=== PATIENT | male | born 1935 | race Caucasian/White ===

== ENCOUNTER 2019-07-12 19:52 | Inpatient (IN) | payer MEDICARE ==
[2019-07-12] MEDS ORDERED: SODIUM CHLORIDE 0.9% 1,000 ML IV STA (20:07)
[2019-07-12 20:32] LABS: Basophils % (A) 0 %; Eosinophils % (A) 0 %; HCT 36.5 % (39.0-53.0); HGB 12.5 gm/dL (13.0-17.5); Lymphocytes # (A) 0.2 k/uL (1.0-4.8); Lymphocytes % (A) 2 %; MCH 32.9 pg (25.0-35.0); MCHC 34.2 g/dL (31.0-37.0); Mean Platelet Volume 7.9; Monocytes # (A) 0.5 k/uL (0-1.0); Monocytes % (A) 4 %; Neutrophils # (A) 9.8 k/uL (1.3-7.7); Neutrophils % (A) 93 %; Platelet Count 154 k/uL (150-450); RDW 14.1 % (11.5-15.5); WBC 10.5 k/uL (3.8-10.6)
[2019-07-12 20:39] LABS: Magnesium 1.8 mg/dL (1.6-2.3); Potassium 4.2 mmol/L (3.5-5.1); Total Bilirubin 0.9 mg/dL (0.2-1.3); Total Protein 6.7 g/dL (6.3-8.2)
[2019-07-12 20:54] LABS: Partial Thromboplastin Time 22.6 sec (22.0-30.0); Prothrombin Time 10.5 sec (9.0-12.0)
--- NOTE | 2019-07-12 21:03 | CT ---
EXAMINATION TYPE: CT brain wo con DATE OF EXAM: 07/12/2019 COMPARISON: None HISTORY: weakness, falls CT DLP: 1074.4 mGycm Automated exposure control for dose reduction was used. FINDINGS: There is cerebral cortical atrophy. There is no mass effect nor midline shift. There is no sign of in tracranial hemorrhage. There is no hydrocephalus. Calvarium is intact. There is mild mucosal thickeni ng in the ethmoid air cells. IMPRESSION: CEREBRAL ATROPHY. NO ACUTE INTRACRANIAL ABNORMALITY.
--- NOTE | 2019-07-12 21:04 | XR ---
EXAMINATION TYPE: XR chest 2V DATE OF EXAM: 07/12/2019 COMPARISON: March 21, 2015 HISTORY: Syncope TECHNIQUE: Frontal and lateral views of the chest are obtained. FINDINGS: There is no heart failure nor confluent pneumonic infiltrate. Heart size is normal. There are chest leads. Thoracic aorta is atheromatous. IMPRESSION: No active cardiopulmonary disease. Normal heart. Atheromatous aorta. No change.
[2019-07-12] MEDS ORDERED: ALBUTEROL NEBULIZED 2.5 MG/3 ML INHALATION PRN ×2 (22:37)
[2019-07-12] MEDS ORDERED: NALOXONE 0.4 MG/ML 1 ML VIAL IV PRN (22:43)
[2019-07-12] MEDS ORDERED: Acetaminophen-Codeine 300-30mg TAB PO PRN (22:43)
[2019-07-12] MEDS ORDERED: ALPRAZolam 0.25 MG TAB PO PRN (22:43)
--- NOTE | 2019-07-12 22:43 | ED ---
Weakness HPI - General Chief complaint: Weakness Stated complaint: Fall Time Seen by Provider: 07/12/19 20:02 Source: patient, EMS Mode of arrival: EMS Limitations: no limitations - History of Present Illness Initial comments: Patient presents with chest pain, weakness. His pain is substernal. Nothing makes his symptoms better or worse. He has no nausea or vomiting. He is a little short of breath. He has no lightheadedness. He has no focal weakness. He has no back pain. He was not doing anything when he began to feel this way. He took no medicine for the symptoms. He has no headache. - Related Data Home Medications Medication Instructions Recorded Confirmed Albuterol Sulfate [Proventil Hfa] 2 puff INHALATION RT-QID PRN 03/21/15 07/12/19 Budesonide/Formoterol Fumarate 2 puff INHALATION RT-BID 03/21/15 07/12/19 [Symbicort 160-4.5 Mcg Inhaler] Cetirizine HCl [Zyrtec] 10 mg PO DAILY 03/21/15 07/12/19 Furosemide [Lasix] 40 mg PO DAILY 03/21/15 07/12/19 Metoprolol Tartrate 25 mg PO BID 03/21/15 07/12/19 Omeprazole [PriLOSEC] 20 mg PO AC-BRKFST 03/21/15 07/12/19 Potassium Chloride [Klor-Con 10] 10 meq PO DAILY 03/21/15 07/12/19 Tiotropium [place] [Spiriva] 1 cap INHALATION RT-DAILY 03/21/15 07/12/19 guaiFENesin [Mucinex] 1,200 mg PO BID PRN 03/21/15 07/12/19 Albuterol Nebulized [Ventolin 2.5 mg INHALATION RT-TID PRN 07/12/19 07/12/19 Nebulized] Aspirin EC [Ecotrin Low Dose] 81 mg PO DAILY 07/12/19 07/12/19 Atorvastatin [Lipitor] 10 mg PO HS 07/12/19 07/12/19 Lisinopril [Zestril] 2.5 mg PO DAILY 07/12/19 07/12/19 glipiZIDE XL [Glucotrol Xl] 2.5 mg PO DAILY 07/12/19 07/12/19 Allergies Allergy/AdvReac Type Severity Reaction Status Date / Time No Known Allergies Allergy Verified 07/12/19 20:39 Review of Systems ROS Statement: Those systems with pertinent positive or pertinent negative responses have been documented in the HPI. ROS Other: All systems not noted in ROS Statement are negative. Past Medical History Past Medical History: COPD, Diabetes Mellitus History of Any Multi-Drug Resistant Organisms: None Reported Past Surgical History: Hernia Repair Past Psychological History: No Psychological Hx Reported Smoking Status: Former smoker Past Alcohol Use History: None Reported Past Drug Use History: None Reported General Exam Limitations: no limitations General appearance: alert, in no apparent distress Head exam: Present: atraumatic, normocephalic, normal inspection Eye exam: Present: normal appearance, PERRL, EOMI. Absent: scleral icterus, conjunctival injection, periorbital swelling ENT exam: Present: normal exam, mucous membranes moist Neck exam: Present: normal inspection. Absent: tenderness, meningismus, lymphadenopathy Respiratory exam: Present: normal lung sounds bilaterally. Absent: respiratory distress, wheezes, rales, rhonchi, stridor Cardiovascular Exam: Present: regular rate, normal rhythm, normal heart sounds. Absent: systolic murmur, diastolic murmur, rubs, gallop, clicks GI/Abdominal exam: Present: soft, normal bowel sounds. Absent: distended, tenderness, guarding, rebound, rigid Extremities exam: Present: normal inspection, full ROM, normal capillary refill. Absent: tenderness, pedal edema, joint swelling, calf tenderness Back exam: Present: normal inspection Neurological exam: Present: alert, oriented X3, CN II-XII intact Psychiatric exam: Present: normal affect, normal mood Skin exam: Present: warm, dry, intact, normal color. Absent: rash Course Vital Signs 07/12/19 07/12/19 07/12/19 19:54 20:00 20:30 Temperature 101.4 F H Pulse Rate 123 H 121 H 122 H Respiratory 20 13 23 Rate Blood Pressure 106/70 103/77 106/70 O2 Sat by Pulse 94 L 93 L 95 Oximetry 07/12/19 07/12/19 07/12/19 21:00 21:30 21:50 Temperature 98.3 F Pulse Rate 118 H 114 H Respiratory 20 26 H Rate Blood Pressure 101/65 118/79 O2 Sat by Pulse 97 94 L Oximetry EKG Findings - EKG Comments: EKG Findings:: Twelve-lead EKG shows ventricular rate 119 bpm, normal PA interval, Roberto complexes and no ST elevation or depression, interpreted by me as sinus tachycardia. Medical Decision Making - Medical Decision Making Patient has shortness of breath. He has chest pain. His weakness. He will be admitted to the hospital. - Lab Data Result diagrams: 07/12/19 20:25 07/12/19 20:25 Lab Results 07/12/19 07/12/19 07/12/19 Range/Units 20:25 20:25 20:25 WBC 10.5 (3.8-10.6) k/uL RBC 3.80 L (4.30-5.90) m/uL Hgb 12.5 L (13.0-17.5) gm/dL Hct 36.5 L (39.0-53.0) % MCV 96.0 (80.0-100.0) fL MCH 32.9 (25.0-35.0) pg MCHC 34.2 (31.0-37.0) g/dL RDW 14.1 (11.5-15.5) % Plt Count 154 (150-450) k/uL Neutrophils % 93 % Lymphocytes % 2 % Monocytes % 4 % Eosinophils % 0 % Basophils % 0 % Neutrophils # 9.8 H (1.3-7.7) k/uL Lymphocytes # 0.2 L (1.0-4.8) k/uL Monocytes # 0.5 (0-1.0) k/uL Eosinophils # 0.0 (0-0.7) k/uL Basophils # 0.0 (0-0.2) k/uL PT 10.5 (9.0-12.0) sec INR 1.0 (<1.2) APTT 22.6 (22.0-30.0) sec Sodium 136 L (137-145) mmol/L Potassium 4.2 (3.5-5.1) mmol/L Chloride 103 (98-107) mmol/L Carbon Dioxide 22 (22-30) mmol/L Anion Gap 11 mmol/L BUN 22 H (9-20) mg/dL Creatinine 1.37 H (0.66-1.25) mg/dL Est GFR (CKD-EPI)AfAm 55 (>60 ml/min/1.73 sqM) Est GFR (CKD-EPI)NonAf 47 (>60 ml/min/1.73 sqM) Glucose 135 H (74-99) mg/dL Calcium 9.0 (8.4-10.2) mg/dL Magnesium 1.8 (1.6-2.3) mg/dL Total Bilirubin 0.9 (0.2-1.3) mg/dL AST 25 (17-59) U/L ALT 22 (21-72) U/L Alkaline Phosphatase 81 (38-126) U/L Troponin I (0.000-0.034) ng/mL Total Protein 6.7 (6.3-8.2) g/dL Albumin 4.0 (3.5-5.0) g/dL 07/12/19 Range/Units 20:25 WBC (3.8-10.6) k/uL RBC (4.30-5.90) m/uL Hgb (13.0-17.5) gm/dL Hct (39.0-53.0) % MCV (80.0-100.0) fL MCH (25.0-35.0) pg MCHC (31.0-37.0) g/dL RDW (11.5-15.5) % Plt Count (150-450) k/uL Neutrophils % % Lymphocytes % % Monocytes % % Eosinophils % % Basophils % % Neutrophils # (1.3-7.7) k/uL Lymphocytes # (1.0-4.8) k/uL Monocytes # (0-1.0) k/uL Eosinophils # (0-0.7) k/uL Basophils # (0-0.2) k/uL PT (9.0-12.0) sec INR (<1.2) APTT (22.0-30.0) sec Sodium (137-145) mmol/L Potassium (3.5-5.1) mmol/L Chloride (98-107) mmol/L Carbon Dioxide (22-30) mmol/L Anion Gap mmol/L BUN (9-20) mg/dL Creatinine (0.66-1.25) mg/dL Est GFR (CKD-EPI)AfAm (>60 ml/min/1.73 sqM) Est GFR (CKD-EPI)NonAf (>60 ml/min/1.73 sqM) Glucose (74-99) mg/dL Calcium (8.4-10.2) mg/dL Magnesium (1.6-2.3) mg/dL Total Bilirubin (0.2-1.3) mg/dL AST (17-59) U/L ALT (21-72) U/L Alkaline Phosphatase (38-126) U/L Troponin I <0.012 (0.000-0.034) ng/mL Total Protein (6.3-8.2) g/dL Albumin (3.5-5.0) g/dL Disposition Clinical Impression: Chest pain Disposition: ADMITTED IP TO THIS HOSP Condition: Fair Referrals: Pavan Fiore MD [Primary Care Provider] - 1-2 days
[2019-07-12 22:47] LABS: Appearance,Urine Clear (Clear); Bilirubin,Urine Negative (Negative); Blood,Urine Trace (Negative); Color,Urine Yellow; Glucose,Urine (UA) Negative (Negative); Ketones,Urine Negative (Negative); Leukocyte Esterase,Urine Negative (Negative); Mucus,Urine Rare /hpf; Nitrite,Urine Negative (Negative); Protein,Urine Negative (Negative); RBC,Urine 2 /hpf (0-5); Specific Gravity,Urine 1.019 (1.001-1.035); Urobilinogen,Urine <2.0 mg/dL (<2.0); WBC,Urine 1 /hpf (0-5)
[2019-07-12 23:59] VITALS: RESP 18
[2019-07-13] MEDS ORDERED: MORPHINE SULFATE 4 MG/ML SYRINGE IV PRN
[2019-07-13] MEDS: ENOXAPARIN 150 MG/ML SYRINGE SQ SCH ×2 (02:55→09:26)
[2019-07-13] MEDS ORDERED: MAG HYDROX/AL HYDROX/SIMETH 30 ML CUP PO PRN (06:00)
[2019-07-13] MEDS ORDERED: ONDANSETRON 4 MG/2 ML VIAL IVP PRN (08:00)
[2019-07-13] MEDS: IPRATROPIUM 0.5 MG/2.5 ML NEBU INHALATION SCH ×2 (08:34→10:03)
[2019-07-13] MEDS ORDERED: DOCUSATE 100 MG CAP PO PRN (09:00)
[2019-07-13] MEDS ORDERED: ASPIRIN 81 MG PO SCH (09:00)
[2019-07-13 09:07] LABS: Glucose,Whole Blood 111 mg/dL (75-99)
--- NOTE | 2019-07-13 09:18 | NM ---
EXAMINATION TYPE: NM pul vent and perfuse DATE OF EXAM: 07/13/2019 COMPARISON: Chest x-ray 06/02/2019 HISTORY: Positive d-dimer TECHNIQUE: Utilizing inhalation of 69.6 mCi Tc 99m DTPA aerosol and intravenous injection of 4.99 mC i of Tc 99m MAA, ventilation and perfusion images are acquired post injection in multiple projections . FINDINGS: No moderate or large mismatched defects are evident. No triple matched defect is evident. There is so me patchy distribution which can be related to mild COPD. IMPRESSION: Low probability for acute pulmonary embolism
[2019-07-13] MEDS: LORATADINE 10 MG TAB PO SCH (09:26)
[2019-07-13] MEDS: POTASSIUM CHLORIDE ER 10 MEQ TAB.ER.PRT PO SCH (09:26)
[2019-07-13] MEDS: LISINOPRIL 2.5 MG TAB PO SCH (09:26)
[2019-07-13] MEDS: FUROSEMIDE 40 MG TAB PO SCH (09:26)
[2019-07-13] MEDS: METOPROLOL TARTRATE 25 MG TAB PO SCH ×2 (09:26→20:31)
[2019-07-13] MEDS: SYMBICORT 160-4.5 MCG INHALER INHALATION SCH ×2 (10:03→19:43)
--- NOTE | 2019-07-13 10:56 | P.CRDCN ---
History of Present Illness History of present illness: This is a pleasant 84-year-old male past medical history significant for diabetes mellitus, hypertension, dysliidemia and COPD. He denies coronary artery disease. 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 We have been asked to see him in consultation for chest pain. He called his daughter yesterday morning stating he felt very shaky and lightheaded. She thought pos sibly his sugar was low and advised him to eat some toast with peanut butter on it. He states he did that but however throughout the morning he felt extremely lightheaded like he was going to pass out. Every time he bent down to pick something up he would fall forward. Frequent falls no loss of consciousness. Febrile on admission. States also has been having black stools for the last 2 weeks. Denies chest discomfort however he did describe some burning in the midsternal region that is consistent with previous history of GERD. EKG reveals sinus tachycardia heart rate 119. No ST or T-wave abnormalities. Chest xray negative for an acute cardiopulmonary process. CT brain cerebral atrophy. No acute abnormality. VQ low probability for PE. Laboratory data reviewed, WBC 10.5, hgb 12.5, plt 154, d-dimer 1.77, sodium 136, potassium 4.2, creatinine 1.37, magnesium 1.8, cardiac enzymes negative x3. Current cardiac medications include aspirin 81 mg daily, atorvastatin 10 mg daily, lasix 40 mg, lisinopril 2.5, lopressor 25 mg BID. At the time of my exam: CONSTITUTIONAL: Denies fever. Denies chills. EYES: Denies blurred vision. Denies vision changes. Denies eye pain. EARS, NOSE, MOUTH & THROAT: Denies headache. Denies sore throat. Denies ear pain. CARDIOVASCULAR: Denies chest pain. Denies shortness of breath. Denies orthopnea. Denies PND. Denies palpitations. RESPIRATORY: Denies cough. GASTROINTESTINAL: Denies abdominal pain. Denies diarrhea. Denies constipation. Denies nausea. Denies vomiting. MUSCULOSKELETAL: Denies myalgias. INTEGUMENTARY: Denies pruitis. Denies rash. NEUROLOGIC: Denies numbness. Denies tingling. Denies weakness. PSYCHIATRIC: Denies anxiety. Denies depression. ENDOCRINE: Complains of generalized weakness. Denies fatigue. Denies weight change. Denies polydipsia. Denies polyurina. GENITOURINARY: Denies burning, hematuria or urgency with micturation. HEMATOLOGIC: Denies history of anemia. Denies bleeding. GENERAL: This is a 84-year-old male in no apparent distress at the time of my examination. HEENT: Head is atraumatic, normocephalic. Pupils are equal, round. Sclerae anicteric. Conjunctivae are clear. Mucous membranes of the mouth are moist. Neck is supple. There is no jugular venous distention. No carotid bruit is heard. LUNGS: Faint expiratory wheeze, scattered rhonchi, no rales. No chest wall tenderness is noted on palpation or with deep breathing. HEART: Regular rate and rhythm without murmurs, rubs or gallops. S1 and S2 h eard. Distant heart sounds. ABDOMEN: Soft, nontender. Bowel sounds are heard. No organomegaly noted. EXTREMITIES: No evidence of peripheral edema and no calf tenderness noted. VASCULAR: Radial and dorsalis pedis pulses palpated, no evidence of clubbing. NEUROLOGIC: Patient is awake, alert and oriented x3. ASSESSMENT Increased weakness Febrile illness COPD Diabetes mellitus Obestiy, BMI 33 PLAN An acute coronary event has been ruled out. Obtain 2D echocardiogram and doppler study to assess cardiac structure and function. Hold aspirin and lovenox due to black stools. Repeat CBC in the morning. Ongoing medical management. Thank you kindly for this consultation. Nurse Practitioner note has been reviewed, I agree with a documented findings and plan of care. Patient was seen and examined. Past Medical History Past Medical History: COPD, Diabetes Mellitus History of Any Multi-Drug Resistant Organisms: None Reported Past Surgical History: Hernia Repair Past Anesthesia/Blood Transfusion Reactions: No Reported Reaction Past Psychological History: No Psychological Hx Reported Smoking Status: Former smoker Past Alcohol Use History: None Reported Past Drug Use History: None Reported - Past Family History Mother Family Medical History: Cancer Additional Family Medical History / Comment(s): STOMACH CA Father History Unknown: Yes Family Medical History: Cancer Additional Family Medical History / Comment(s): BONE CA Medications and Allergies Home Medications Medication Instructions Recorded Confirmed Type Albuterol Sulfate [Proventil Hfa] 2 puff INHALATION RT-QID PRN 03/21/15 07/12/19 History Budesonide/Formoterol Fumarate 2 puff INHALATION RT-BID 03/21/15 07/12/19 History [Symbicort 160-4.5 Mcg Inhaler] Cetirizine HCl [Zyrtec] 10 mg PO DAILY 03/21/15 07/12/19 History Furosemide [Lasix] 40 mg PO DAILY 03/21/15 07/12/19 History Metoprolol Tartrate 25 mg PO BID 03/21/15 07/12/19 History Omeprazole [PriLOSEC] 20 mg PO AC-BRKFST 03/21/15 07/12/19 History Potassium Chloride [Klor-Con 10] 10 meq PO DAILY 03/21/15 07/12/19 History Tiotropium [place] [Spiriva] 1 cap INHALATION RT-DAILY 03/21/15 07/12/19 History guaiFENesin [Mucinex] 1,200 mg PO BID PRN 03/21/15 07/12/19 History Albuterol Nebulized [Ventolin 2.5 mg INHALATION RT-TID PRN 07/12/19 07/12/19 History Nebulized] Aspirin EC [Ecotrin Low Dose] 81 mg PO DAILY 07/12/19 07/12/19 History Atorvastatin [Lipitor] 10 mg PO HS 07/12/19 07/12/19 History Lisinopril [Zestril] 2.5 mg PO DAILY 07/12/19 07/12/19 History glipiZIDE XL [Glucotrol Xl] 2.5 mg PO DAILY 07/12/19 07/12/19 History Allergies Allergy/AdvReac Type Severity Reaction Status Date / Time No Known Allergies Allergy Verified 07/12/19 20:39 Physical Exam Vitals: Vital Signs Temp Pulse Pulse Resp BP BP Pulse Ox 07/13/19 08:00 98.2 F 98 18 141/79 99 07/13/19 04:00 103 H 18 07/13/19 03:33 97.5 F L 103 H 18 131/70 99 07/13/19 00:20 101 H 18 07/13/19 00:00 97.7 F 101 H 18 124/80 98 07/12/19 23:57 105 H 18 113/80 96 07/12/19 23:18 98 07/12/19 23:10 101 H 07/12/19 23:06 98.4 F 101 H 20 109/77 96 07/12/19 21:50 98.3 F 07/12/19 21:30 114 H 26 H 118/79 94 L 07/12/19 21:00 118 H 20 101/65 97 07/12/19 20:30 122 H 23 106/70 95 07/12/19 20:00 121 H 13 103/77 93 L 07/12/19 19:54 101.4 F H 123 H 20 106/70 94 L Intake and Output 07/12/19 07/13/19 07/13/19 22:59 06:59 14:59 Other: # Voids 1 Weight 113.398 kg Results 07/12/19 20:25 07/12/19 20:25 Cardiac Enzymes 07/12/19 07/12/19 07/13/19 Range/Units 20:25 20:25 00:10 AST 25 (17-59) U/L Troponin I <0.012 <0.012 (0.000-0.034) ng/mL 07/13/19 Range/Units 07:54 AST (17-59) U/L Troponin I 0.019 (0.000-0.034) ng/mL Coagulation 07/12/19 Range/Units 20:25 PT 10.5 (9.0-12.0) sec APTT 22.6 (22.0-30.0) sec CBC 07/12/19 Range/Units 20:25 WBC 10.5 (3.8-10.6) k/uL RBC 3.80 L (4.30-5.90) m/uL Hgb 12.5 L (13.0-17.5) gm/dL Hct 36.5 L (39.0-53.0) % Plt Count 154 (150-450) k/uL Comprehensive Metabolic Panel 07/12/19 Range/Units 20:25 Sodium 136 L (137-145) mmol/L Potassium 4.2 (3.5-5.1) mmol/L Chloride 103 (98-107) mmol/L Carbon Dioxide 22 (22-30) mmol/L BUN 22 H (9-20) mg/dL Creatinine 1.37 H (0.66-1.25) mg/dL Glucose 135 H (74-99) mg/dL Calcium 9.0 (8.4-10.2) mg/dL AST 25 (17-59) U/L ALT 22 (21-72) U/L Alkaline Phosphatase 81 (38-126) U/L Total Protein 6.7 (6.3-8.2) g/dL Albumin 4.0 (3.5-5.0) g/dL Current Medications Generic Name Dose Route Start Last Admin Trade Name Freq PRN Reason Stop Dose Admin Acetaminophen/Codeine Phosphate 1 each 07/12/19 22:43 Tylenol #3 PO Q4HR PRN Moderate Pain Al Hydroxide/Mg Hydroxide 15 ml 07/13/19 06:00 Maalox PO Q6HR PRN Indigestion Albuterol Sulfate 2.5 mg 07/12/19 22:37 Ventolin Nebulized INHALATION RT-QID PRN Shortness Of Breath Albuterol Sulfate 2.5 mg 07/12/19 22:37 07/12/19 23:10 Ventolin Nebulized INHALATION 2.5 mg RT-TID PRN Administration Shortness Of Breath Alprazolam 0.25 mg 07/12/19 22:43 Xanax PO Q6HR PRN Anxiety Aspirin 81 mg 07/13/19 09:00 Aspirin PO DAILY [facility] Atorvastatin Calcium 10 mg 07/13/19 21:00 Lipitor PO HS [facility] Budesonide/Formoterol Fumarate 2 puff 07/13/19 08:00 Symbicort 160-4.5 Mcg Inhaler INHALATION RT-BID [facility] Docusate Sodium 100 mg 07/13/19 09:00 Colace PO BID PRN Constipation Enoxaparin Sodium 150 mg 07/13/19 01:30 07/13/19 02:55 Lovenox SQ 150 mg DAILY [facility] Administration Furosemide 40 mg 07/13/19 09:00 Lasix PO DAILY [facility] Glipizide 2.5 mg 07/13/19 09:00 Glucotrol PO DAILY [facility] Ipratropium [place] 0.5 mg 07/13/19 08:00 07/13/19 08:34 Atrovent Nebulized INHALATION Not Given RT-QID [facility] Lisinopril 2.5 mg 07/13/19 09:00 Zestril PO DAILY [facility] Loratadine 10 mg 07/13/19 09:00 Claritin PO DAILY [facility] Metoprolol Tartrate 25 mg 07/13/19 09:00 Lopressor PO BID [facility] Morphine Sulfate 4 mg 07/13/19 00:00 Morphine Sulfate (Inj) IV Q4HR PRN Severe Pain Naloxone HCl 0.2 mg 07/12/19 22:43 Narcan IV Q2M PRN Opioid Reversal Ondansetron HCl 4 mg 07/13/19 08:00 Zofran IVP Q8HR PRN Nausea And Vomiting Potassium Chloride 10 meq 07/13/19 09:00 K-Dur 10 PO DAILY [facility] Intake and Output 07/12/19 07/13/19 07/13/19 22:59 06:59 14:59 Other: # Voids 1 Weight 113.398 kg 07/12/19 20:25 07/12/19 20:25
[2019-07-13 11:53] LABS: Glucose,Whole Blood 74 mg/dL (75-99)
[2019-07-13] MEDS ORDERED: IPRATROPIUM-ALBUTEROL 3 ML NEB INHALATION PRN (12:23)
[2019-07-13] MEDS: IPRATROPIUM-ALBUTEROL 3 ML NEB INHALATION SCH ×4 (12:29→23:47)
--- NOTE | 2019-07-13 12:57 | ECHOF ---
Referral Reason:cp MEASUREMENTS -------- HEIGHT: 182.9 cm WEIGHT: 113.9 kg BP: RVIDd: 4.0 cm (< 3.3) IVSd: 1.4 cm (0.6 - 1.1) LVIDd: 3.8 cm (3.9 - 5.3) LVPWd: 1.3 cm (0.6 - 1.1) IVSs: 2.0 cm LVIDs: 2.6 cm LVPWs: 1.6 cm LA Diam: 3.0 cm (2.7 - 3.8) LAESV Index (A-L): 21.98 ml/m Ao Diam: 3.4 cm (2.0 - 3.7) AV Cusp: 2.1 cm (1.5 - 2.6) MV EXCURSION: 21.866 mm (> 18.000) MV EF SLOPE: 66 mm/s (70 - 150) EPSS: 0.3 cm MV E Brayden: 0.75 m/s MV DecT: 207 ms MV A [place]: 0.97 m/s MV E/A Ratio: 0.78 AV maxP.79 mmHg AV meanP.67 mmHg RAP: 5.00 mmHg RVSP: 37.02 mmHg FINDINGS -------- Sinus rhythm. This was a technically difficult study with suboptimal views. The left ventricular size is normal. There is moderate concentric left ventricular hypertrophy. O verall left ventricular systolic function is normal with, an EF between 55 - 60 %. The right ventricle is moderately enlarged. Normal LA size by volume 22+/-6 ml/m2. The right atrium is normal in size. The right atrial size is normal. 5 ml of Lumason was utilized for enhancement of images. Interatrial and interventricular septum intact. There is mild to moderate aortic valve sclerosis. Peak/mean gradient across the Aortic Valve is 13. 79mmHg / 7.67mmHg. Mild mitral annular calcification present. Mild mitral regurgitation is present. [id number] tricuspid regurgitation present. There is mild pulmonary hypertension. The right ventricular systolic pressure, as measured by Doppler, is 37.02mmHg. The pulmonic valve was not well visualized. There is no pulmonic regurgitation present. The aortic root size is normal. Normal inferior vena cava with normal inspiratory collapse consistent with estimated right atrial pre ssure of 5 mmHg. The inferior vena cava is mildly dilated. There is no pericardial effusion. CONCLUSIONS -------- 1. Sinus rhythm. 2. This was a technically difficult study with suboptimal views. 3. The left ventricular size is normal. 4. There is moderate concentric left ventricular hypertrophy. 5. Overall left ventricular systolic function is normal with, an EF between 55 - 60 %. 6. The right ventricle is moderately enlarged. 7. Normal LA size by volume 22+/-6 ml/m2. 8. 5 ml of Lumason was utilized for enhancement of images. 9. There is mild to moderate aortic valve sclerosis. 10. Peak/mean gradient across the Aortic Valve is 13.79mmHg / 7.67mmHg. 11. Mild mitral annular calcification present. 12. Mild mitral regurgitation is present. 13. [id number] tricuspid regurgitation present. 14. There is mild pulmonary hypertension. 15. The pulmonic valve was not well visualized. 16. The aortic root size is normal. 17. Normal inferior vena cava with normal inspiratory collapse consistent with estimated right atrial pressure of 5 mmHg. 18. The inferior vena cava is mildly dilated. 19. There is no pericardial effusion. ART DEPARTMENT HEAD: Taty Bergman RDCS
[2019-07-13] MEDS: PANTOPRAZOLE 40 MG TABLET PO SCH ×2 (13:00→17:08)
[2019-07-13 16:38] LABS: Glucose,Whole Blood 109 mg/dL (75-99)
--- NOTE | 2019-07-13 18:27 | P.HPIM ---
History of Present Illness H&P Date: 07/13/19 Chief Complaint: shortness of breath chest pain falls this is a pleasant 84-year-old gentleman patient of Dr. Fiore, underlying history of COPD diabetes mellitus type 2 hypertension admitted to the hospital secondary to shortness of breath, and near-syncopal episode. Patient has chest pain, with shortness of breath, no significant change in the cough with white sputum, has a temperature of 101 at home, and has had melena for the past 3-4 weeks. Patient was taking iron medications at the time, however she discontinued this 2 weeks ago, and still has melanocytic stools. Patient denies any abdominal pain prior to admission, however does have periumbilical pain on my examination today. Patient does not have any dysphagia, no pleurisy, has lightheadedness, without any focal upper extremity neurologic weakness, no diplopia, patient denies any alcohol intake or NSAID intake, Emergency room, urinalysis was negative, lipasenot done, troponins are0.012 and 0.018, creatinine is 1.37, d-dimer slightly elevated at 1.77,WBC count of 10.5 hemoglobin of 12.5chest x-ray shows no acute pulmonary disease, atheromatous aortaCT of brain shows cerebral atrophy and no acute intracranial abnormality mild mucosal thickening in ethmoid air cellsEKGshowed sinus tachycardia heart rate of [address]-T wave changesVQ scan shows low probability for acute pulmonary emboli, some patchy distribution which could be related to mild COPD. Consult was made with cardiology, and pulmonary medicinefor COPD exacerbation and atypical chest pain. Patient has had O2 on the at at bedtime, nebulized treatment times a day treatments,Hemoccult stools to be done, pro-calcitonin levels to be obtained, T-max noted at 101 denies any aspirativevent, patient denies any EGD in the past, orthostatics to be done, patient might need GI consultation if Hemoccult stools are positivemonitor hemoglobin while in hospital, patient does not have any significant melanocytic stools no diarrhea. Review of Systems Constitutional: Reports as per HPI, Denies anorexia, Denies chills, Denies chronic headaches, Denies chronic pain, Denies daytime sleepiness, Denies fatigue, Denies fever, Denies lethargy, Denies malaise, Denies night sweats, Denies poor appetite, Denies sweats, Denies weakness, Denies weight gain, Denies weight loss Ears, nose, mouth and throat: Reports as per HPI Cardiovascular: Reports as per HPI Respiratory: Reports cough, Denies as per HPI, Denies congestion, Denies cough with sputum, Denies dyspnea, Denies excessive sputum, Denies hemoptysis, Denies home oxygen, Denies pain, Denies pain on inspiration, Denies pleurisy, Denies respiratory infections, Denies sleep apnea, Denies snoring, Denies wheezing Gastrointestinal: Reports as per HPI, Denies abdominal pain, Denies belching, Denies bloating, Denies BRBPR, Denies change in bowel habits, Denies coffee ground emesis, Denies constipation, Denies diarrhea, Denies dyspepsia, Denies early satiety, Denies excessive gas, Denies heartburn, Denies hematemesis, Denies hematochezia, Denies indigestion, Denies jaundice, Denies lactose intolerance, Denies loss of appetite, Denies melena, Denies nausea, Denies vomiting Genitourinary: Reports as per HPI, Denies decreased libido, Denies difficulties fathering child, Denies discharge, Denies dysuria, Denies erectile dysfunction, Denies flank pain, Denies genital pain, Denies genital sores, Denies hematuria, Denies impotence, Denies incontinence, Denies kidney stones, Denies nocturia, Denies polyuria, Denies testicular lump, Denies testicular pain, Denies urinary frequency, Denies urinary hesitancy, Denies urinary retention Musculoskeletal: Reports as per HPI, Reports frequent falls, Reports gait dysfunction Integumentary: Reports as per HPI Neurological: Reports as per HPI, Reports weakness, Denies aphasia, Denies ataxia, Denies balance difficulties, Denies burning pain, Denies change in mentation, Denies change in smell/taste, Denies change in speech, Denies confusion, Denies convulsions, Denies double vision, Denies gait dysfunction, Denies head injury, Denies headaches, Denies hearing difficulties, Denies lack of coordination, Denies loss of vision, Denies memory loss, Denies migraines, Denies motor disturbance, Denies numbness, Denies paralysis, Denies paresthesias, Denies seizures, Denies sensory deficit, Denies spasticity, Denies syncope, Denies tic, Denies tingling, Denies transient paralysis, Denies tremors, Denies vertigo, Denies visual changes Psychiatric: Reports as per HPI Endocrine: Reports as per HPI, Denies cold intolerance, Denies deepening of the voice, Denies excessive sweating, Denies excessive thirst, Denies fatigue, Denies flushing, Denies heat intolerance, Denies high blood sugars, Denies increase in ring/shoe/hat size, Denies low blood sugars, Denies nocturia, Denies palpitations, Denies polydipsia, Denies polyphagia, Denies polyuria, Denies proptosis, Denies recent glucocorticoid use, Denies thyroid mass, Denies weight change Hematologic/Lymphatic: Reports as per HPI Allergic/Immunologic: Reports as per HPI Past Medical History Past Medical History: COPD, Diabetes Mellitus History of Any Multi-Drug Resistant Organisms: None Reported Past Surgical History: Hernia Repair Past Anesthesia/Blood Transfusion Reactions: No Reported Reaction Past Psychological History: No Psychological Hx Reported Smoking Status: Former smoker Past Alcohol Use History: None Reported Past Drug Use History: None Reported - Past Family History Mother Family Medical History: Cancer Additional Family Medical History / Comment(s): STOMACH CA Father History Unknown: Yes Family Medical History: Cancer Additional Family Medical History / Comment(s): BONE CA Medications and Allergies Home Medications Medication Instructions Recorded Confirmed Type Albuterol Sulfate [Proventil Hfa] 2 puff INHALATION RT-QID PRN 03/21/15 07/12/19 History Budesonide/Formoterol Fumarate 2 puff INHALATION RT-BID 03/21/15 07/12/19 History [Symbicort 160-4.5 Mcg Inhaler] Cetirizine HCl [Zyrtec] 10 mg PO DAILY 03/21/15 07/12/19 History Furosemide [Lasix] 40 mg PO DAILY 03/21/15 07/12/19 History Metoprolol Tartrate 25 mg PO BID 03/21/15 07/12/19 History Omeprazole [PriLOSEC] 20 mg PO AC-BRKFST 03/21/15 07/12/19 History Potassium Chloride [Klor-Con 10] 10 meq PO DAILY 03/21/15 07/12/19 History Tiotropium [place] [Spiriva] 1 cap INHALATION RT-DAILY 03/21/15 07/12/19 History guaiFENesin [Mucinex] 1,200 mg PO BID PRN 03/21/15 07/12/19 History Albuterol Nebulized [Ventolin 2.5 mg INHALATION RT-TID PRN 07/12/19 07/12/19 History Nebulized] Aspirin EC [Ecotrin Low Dose] 81 mg PO DAILY 07/12/19 07/12/19 History Atorvastatin [Lipitor] 10 mg PO HS 07/12/19 07/12/19 History Lisinopril [Zestril] 2.5 mg PO DAILY 07/12/19 07/12/19 History glipiZIDE XL [Glucotrol Xl] 2.5 mg PO DAILY 07/12/19 07/12/19 History Allergies Allergy/AdvReac Type Severity Reaction Status Date / Time No Known Allergies Allergy Verified 07/12/19 20:39 Physical Exam Vitals: Vital Signs Temp Pulse Pulse Resp BP BP Pulse Ox 07/13/19 16:06 88 07/13/19 16:00 98.1 F 85 18 102/63 96 07/13/19 12:39 96 07/13/19 12:28 92 07/13/19 12:00 98.3 F 84 18 132/81 98 07/13/19 10:17 104 H 07/13/19 10:04 104 H 07/13/19 08:00 98.2 F 98 18 141/79 99 07/13/19 04:00 103 H 18 07/13/19 03:33 97.5 F L 103 H 18 131/70 99 07/13/19 00:20 101 H 18 07/13/19 00:00 97.7 F 101 H 18 124/80 98 07/12/19 23:57 105 H 18 113/80 96 07/12/19 23:18 98 07/12/19 23:10 101 H 07/12/19 23:06 98.4 F 101 H 20 109/77 96 07/12/19 21:50 98.3 F 07/12/19 21:30 114 H 26 H 118/79 94 L 07/12/19 21:00 118 H 20 101/65 97 07/12/19 20:30 122 H 23 106/70 95 07/12/19 20:00 121 H 13 103/77 93 L 07/12/19 19:54 101.4 F H 123 H 20 106/70 94 L Intake and Output 07/13/19 07/13/19 07/13/19 06:59 14:59 22:59 Other: Voiding Method Toilet Toilet # Voids 1 1 - Constitutional General appearance: cooperative, no acute distress - EENT Eyes: anicteric sclerae, EOMI, PERRLA, dentition normal, normal appearance ENT: hard of hearing, normal oropharynx - Neck Neck: normal ROM Thyroid: bilateral: normal size, negative: nodule - Respiratory Respiratory: bilateral: CTA, negative: diminished, dullness, rales, rhonchi, wheezing - Cardiovascular Rhythm: regular Heart sounds: normal: S1, S2 Abnormal Heart Sounds: no systolic murmur, no diastolic murmur, no rub, no S3 Gallop, no S4 Gallop, no click, no other - Gastrointestinal General gastrointestinal: normal bowel sounds, soft - Integumentary Integumentary: decreased turgor, normal - Neurologic Neurologic: CNII-XII intact - Musculoskeletal Musculoskeletal: gait normal, strength equal bilaterally - Psychiatric Psychiatric: A&O x's 3, appropriate affect, intact judgment & insight Results CBC & Chem 7: 07/12/19 20:25 07/12/19 20:25 Labs: Abnormal Lab Results - Last 24 Hours (Table) 07/12/19 07/12/19 07/12/19 Range/Units 20:10 20:25 20:25 RBC 3.80 L (4.30-5.90) m/uL Hgb 12.5 L (13.0-17.5) gm/dL Hct 36.5 L (39.0-53.0) % Neutrophils # 9.8 H (1.3-7.7) k/uL Lymphocytes # 0.2 L (1.0-4.8) k/uL D-Dimer (<0.60) mg/L FEU Sodium 136 L (137-145) mmol/L BUN 22 H (9-20) mg/dL Creatinine 1.37 H (0.66-1.25) mg/dL Glucose 135 H (74-99) mg/dL POC Glucose (mg/dL) (75-99) mg/dL Urine Blood Trace H (Negative) Urine Mucus Rare H (None) /hpf 07/13/19 07/13/19 07/13/19 Range/Units 00:10 09:05 11:51 RBC (4.30-5.90) m/uL Hgb (13.0-17.5) gm/dL Hct (39.0-53.0) % Neutrophils # (1.3-7.7) k/uL Lymphocytes # (1.0-4.8) k/uL D-Dimer 1.77 H (<0.60) mg/L FEU Sodium (137-145) mmol/L BUN (9-20) mg/dL Creatinine (0.66-1.25) mg/dL Glucose (74-99) mg/dL POC Glucose (mg/dL) 111 H 74 L (75-99) mg/dL Urine Blood (Negative) Urine Mucus (None) /hpf 07/13/19 Range/Units 16:35 RBC (4.30-5.90) m/uL Hgb (13.0-17.5) gm/dL Hct (39.0-53.0) % Neutrophils # (1.3-7.7) k/uL Lymphocytes # (1.0-4.8) k/uL D-Dimer (<0.60) mg/L FEU Sodium (137-145) mmol/L BUN (9-20) mg/dL Creatinine (0.66-1.25) mg/dL Glucose (74-99) mg/dL POC Glucose (mg/dL) 109 H (75-99) mg/dL Urine Blood (Negative) Urine Mucus (None) /hpf Thrombosis Risk Factor Assmnt - DVT/VTE Prophylaxis DVT/VTE Prophylaxis: Pharmacologic Prophylaxis ordered - Choose All That Apply Any of the Below Risk Factors Present?: Yes Each Factor Represents 1 point: Abnormal pulmonary function (COPD), Obesity (BMI >25) Other Risk Factors: Yes Each Risk Factor Represents 3 Points: Age 75 years or older Other congenital or acquired thrombophilia - If yes, enter type in comment: No Thrombosis Risk Factor Assessment Total Risk Factor Score: 5 Thrombosis Risk Factor Assessment Level: High Risk Assessment and Plan Plan: 1. Near-syncope, with weakness, febrile illness, primary source unknown, patient has chronic bronchitis without purulence, urinalysis negative, possible viral illness, pro-calcitonin levels to be done, no antibiotic given at this time,orthostatics to be done 2. Atypical chest pain, troponins are negative 2, cardiology is consulted, echocardiogram requested,patientis on Lopressor, Lipitor, lisinopril no changes made, check lipase 3. COPD, with mild exacerbation, no hypoxemic events noted, nebulized albuterol Atrovent, Solu-Medrol 40 mg every 6 hours, short taper, Dr. Coats was consulted continue on Symbicort, nebulized albuterol or not when necessary schedulecontinue Spiriva 4. febrile illness, see above #1 5. Melena, for the past 3 weeks, hemoglobin remained stable at 12.5, Hemoccult stools, patient might need GI consultation should Hemoccult Be +, Protonix 40 mg twice a day 6. GERD, on maintenance Prilosec at home 7. Diabetes mellitus type 2, Glucotrol 2.5 mg daily, NovoLog scale A1c to be done, monitor for hypoglycemic events, dietary intake has been at baseline is 100% 8. elevated d-dimer, VQ scan showed low probability 9. 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
[2019-07-13 20:11] LABS: Glucose,Whole Blood 116 mg/dL (75-99)
[2019-07-13] MEDS ORDERED: ATORVASTATIN 10 MG TAB PO SCH (21:00)
[2019-07-14] MEDS: IPRATROPIUM-ALBUTEROL 3 ML NEB INHALATION SCH ×4 (04:11→15:49)
[2019-07-14 06:49] LABS: Glucose,Whole Blood 111 mg/dL (75-99)
[2019-07-14 07:27] LABS: HCT 35.7 % (39.0-53.0); HGB 12.2 gm/dL (13.0-17.5); MCH 32.7 pg (25.0-35.0); MCHC 34.2 g/dL (31.0-37.0); MCV 95.8 fL (80.0-100.0); Mean Platelet Volume 8.2; Platelet Count 155 k/uL (150-450); RBC 3.72 m/uL (4.30-5.90); RDW 14.3 % (11.5-15.5); WBC 6.3 k/uL (3.8-10.6)
[2019-07-14] MEDS: SYMBICORT 160-4.5 MCG INHALER INHALATION SCH (07:36)
[2019-07-14] MEDS: PANTOPRAZOLE 40 MG TABLET PO SCH (08:09)
[2019-07-14] MEDS: METOPROLOL TARTRATE 25 MG TAB PO SCH (08:09)
[2019-07-14] MEDS: LISINOPRIL 2.5 MG TAB PO SCH (08:09)
[2019-07-14] MEDS: POTASSIUM CHLORIDE ER 10 MEQ TAB.ER.PRT PO SCH (08:09)
[2019-07-14] MEDS: LORATADINE 10 MG TAB PO SCH (08:09)
[2019-07-14] MEDS: FUROSEMIDE 40 MG TAB PO SCH (08:09)
[2019-07-14 09:26] VITALS: BP 125/79; TEMP 97.3
[2019-07-14] MEDS ORDERED: DOXYCYCLINE 100 MG CAP PO SCH (10:00)
[2019-07-14 11:35] VITALS: PULSE 78
[2019-07-14 11:38] LABS: Glucose,Whole Blood 96 mg/dL (75-99)
--- NOTE | 2019-07-14 12:22 | P.PN ---
Subjective This is a pleasant 84-year-old male past medical history significant for diabetes mellitus, hypertension, dysliidemia and COPD. He denies coronary artery disease. He does not follow with a relief captain for any reason. We have been asked to see him in consultation for chest pain. Pt is seen and examined sitting up in no acute distress. He denies any further symptoms of chest discomfort. Echocardiogram obtained reveals preserved LV systolic function with EF 55-60%, mild with mean gradient of 7mmHg. Laboratory data reviewed, hgb stable at 12.2, pro-calcitonin 2.21. GENERAL: This is a 84-year-old male in no apparent distress at the time of my examination. HEENT: Head is atraumatic, normocephalic. Pupils are equal, round. Sclerae anicteric. Conjunctivae are clear. Mucous membranes of the mouth are moist. Neck is supple. There is no jugular venous distention. No carotid bruit is heard. LUNGS: No wheezes, scattered rhonchi, no rales. No chest wall tenderness is noted on palpation or with deep breathing. HEART: Regular rate and rhythm without murmurs, rubs or gallops. S1 and S2 heard. Distant heart sounds. EXTREMITIES: No evidence of peripheral edema and no calf tenderness noted. ASSESSMENT Increased weakness Febrile illness COPD Diabetes mellitus Obestiy, BMI 33 PLAN Ongoing medical management. We will follow as needed, please feel free to call with further cardiac questions of concerns. Follow up in the office with Dr. Samayoa in 2 weeks. Nurse Practitioner note has been reviewed, I agree with a documented findings and plan of care. Patient was seen and examined. Objective - Vital Signs Vital signs: Vital Signs Temp 97.3 F L 07/14/19 08:00 Pulse 78 07/14/19 11:33 Resp 18 07/14/19 08:00 BP 125/79 07/14/19 08:00 Pulse Ox 96 07/14/19 08:00 Intake & Output 07/13/19 07/14/19 07/14/19 18:59 06:59 18:59 Intake Total 960 Balance 960 Intake: Oral 960 Other: Voiding Method Toilet Toilet Toilet # Voids 1 1 2 - Labs CBC & Chem 7: 07/14/19 06:39 07/12/19 20:25 Labs: Abnormal Lab Results - Last 24 Hours (Table) 07/13/19 07/13/19 07/13/19 Range/Units 16:35 17:50 20:10 RBC (4.30-5.90) m/uL Hgb (13.0-17.5) gm/dL Hct (39.0-53.0) % POC Glucose (mg/dL) 109 H 116 H (75-99) mg/dL Procalcitonin 2.21 H (0.02-0.09) ng/mL 07/14/19 07/14/19 Range/Units 06:39 06:47 RBC 3.72 L (4.30-5.90) m/uL Hgb 12.2 L (13.0-17.5) gm/dL Hct 35.7 L (39.0-53.0) % POC Glucose (mg/dL) 111 H (75-99) mg/dL Procalcitonin (0.02-0.09) ng/mL
--- NOTE | 2019-07-14 12:39 | P.CNPUL ---
History of Present Illness Consult date: 07/14/19 Reason for consult: COPD Chief complaint: weakness and vague chest discomfort. History of present illness: this is an 84-year-old white male with history of moderate severe COPD, FEV1 is in the range of 64%, FEV1/FVC is 50%. This is based on the PFT he had in 2016. Patient is also known to have history of multiple medical problems including benign essential hypertension, hypercholesterolemia, type 2 diabetes, presented to the hospital on 07/09/2019 with mostly complaints of profound weakness, sometimes he feels unsteady on his feet, and he was also complaining of intermittent episodes of cough, cough is productive with whitish phlegm, some vague chest discomfort. Patient was seen in the ER, and upon presentation he had a temp of 101.relatively normal chest x-ray, relatively normal CBC, no evidence of leukocytosis,relatively normal electrolytes, however his creatinine was noted to be slightly elevated at 1.37.his urinalysis was basically unremarkable. Patient had a VQ scan which showed low probability for pulmonary embolism, and again he had a relatively normal chest x-ray, admitted, and this consult was initiated. Since admission, the patient was not placed on antibiotics,he was placed on bronchodilators and diuretics in the form of Lasix 40 mg by mouth daily, and over the last 24 hours, the patient is feeling better, breathing a lot easier, less shortness of breath, hardly any cough, no wheez ing,no fever no chills, and for some reason a pro-calcitonin level was ordered. And it was elevated. But again clinically the patient had mostly symptoms of tracheobronchitis, and no clinical evidence or radiographic evidence to suggest pneumonia. For his pulmonary symptoms, I have recommended doxycycline 100 mg by mouth twice a day. Again the patient is feeling much better today compared to h ow he felt yesterday. Review of Systems constitutional: Mostly generalized weakness, feels unsteady on his feet, fatigue, and some lightheadedness. Denies any weight loss, did have a temp of 101 upon admission. HEENT: Negative Pulmonary: As noted in HPI mostly cough, shortness of breath on exertion, whitish phlegm. And some vague chest discomfort. Cardiac: Denies any palpitations, denies any classic anginal symptoms, denies any syncope, but felt weak and lightheaded. GI: Denies any nausea vomiting abdominal pain melena or hematemesis. Genitourinary: Denies any dysuria frequency urgency or hematuria. Musculoskeletal: Mostly weakness and felt unsteady on his feet. Neurologic: Denies any headache blurred vision dizziness but he did have some lightheadedness as noted in HPI. Hematologic: No clotting bleeding or bruising Psychiatric: Denies any symptoms of active depression Endocrine: Denies any symptoms of heat or cold intolerance, patient is known to have history of diabetes. Lymphatics: Denies any bleeding disorders, denies any underlying malignancy. Skin: Denies any rashes or pruritus. Past Medical History Past Medical History: COPD, Diabetes Mellitus History of Any Multi-Drug Resistant Organisms: None Reported Past Surgical History: Hernia Repair Past Anesthesia/Blood Transfusion Reactions: No Reported Reaction Past Psychological History: No Psychological Hx Reported Smoking Status: Former smoker Past Alcohol Use History: None Reported Past Drug Use History: None Reported - Past Family History Mother Family Medical History: Cancer Additional Family Medical History / Comment(s): STOMACH CA Father History Unknown: Yes Family Medical History: Cancer Additional Family Medical History / Comment(s): BONE CA Medications and Allergies Home Medications Medication Instructions Recorded Confirmed Type Albuterol Sulfate [Proventil Hfa] 2 puff INHALATION RT-QID PRN 03/21/15 07/12/19 History Budesonide/Formoterol Fumarate 2 puff INHALATION RT-BID 03/21/15 07/12/19 History [Symbicort 160-4.5 Mcg Inhaler] Cetirizine HCl [Zyrtec] 10 mg PO DAILY 03/21/15 07/12/19 History Furosemide [Lasix] 40 mg PO DAILY 03/21/15 07/12/19 History Metoprolol Tartrate 25 mg PO BID 03/21/15 07/12/19 History Omeprazole [PriLOSEC] 20 mg PO AC-BRKFST 03/21/15 07/12/19 History Potassium Chloride [Klor-Con 10] 10 meq PO DAILY 03/21/15 07/12/19 History Tiotropium [place] [Spiriva] 1 cap INHALATION RT-DAILY 03/21/15 07/12/19 History guaiFENesin [Mucinex] 1,200 mg PO BID PRN 03/21/15 07/12/19 History Albuterol Nebulized [Ventolin 2.5 mg INHALATION RT-TID PRN 07/12/19 07/12/19 History Nebulized] Aspirin EC [Ecotrin Low Dose] 81 mg PO DAILY 07/12/19 07/12/19 History Atorvastatin [Lipitor] 10 mg PO HS 07/12/19 07/12/19 History Lisinopril [Zestril] 2.5 mg PO DAILY 07/12/19 07/12/19 History glipiZIDE XL [Glucotrol Xl] 2.5 mg PO DAILY 07/12/19 07/12/19 History Allergies Allergy/AdvReac Type Severity Reaction Status Date / Time No Known Allergies Allergy Verified 07/12/19 20:39 Physical Exam Vitals: Vital Signs Temp Pulse Pulse Resp BP Pulse Ox 07/14/19 11:33 78 07/14/19 11:24 76 07/14/19 08:00 97.3 F L 110 H 18 125/79 96 07/14/19 07:53 76 07/14/19 07:38 72 97 07/14/19 04:21 96 07/14/19 04:11 95 07/14/19 04:00 97.8 F 71 18 110/72 99 07/14/19 03:31 102 H 18 07/14/19 00:00 102 H 18 07/13/19 23:58 100 07/13/19 23:47 100 07/13/19 23:07 98 F 102 H 18 130/88 98 07/13/19 19:56 96 72 18 07/13/19 19:45 98 95 07/13/19 19:30 97.7 F 72 18 105/70 97 07/13/19 16:06 88 07/13/19 16:00 98.1 F 85 18 102/63 96 07/13/19 12:39 96 07/13/19 12:28 92 Intake and Output 07/13/19 07/14/19 07/14/19 22:59 06:59 14:59 Intake Total 960 Balance 960 Intake: Oral 960 Other: Voiding Method Toilet Toilet Toilet # Voids 1 1 2 Physical Exam: Revealed an 84-year-old white male in no distress.very pleasant, on room air. Head: Atraumatic, normocephalic. HEENT:[Neck is supple.] [No neck masses.] [No thyromegaly.] [No JVD.]PERRLA, EOMI, no icterus. No JVD. No stridor. Chest: [symmetrical chest expansion, diminished breath sound bilaterally no crackles or rhonchi or wheezes. No chest wall tenderness.] Cardiac Exam: [Normal S1 and S2, no S3 gallop, 2/6 systolic murmur thought the precordium.] Abdomen: [obese,Soft, nontender, no megaly, no rebound, no guarding, normal bowel sounds.] Extremities: [No clubbing, no edema, no cyanosis.] Neurological Exam:alert and oriented 3. [No focal neurologic deficit.] psychiatric: Normal mood, affect and normal mental status examination. Skin: No rashes. Lymphatics: No lymphadenopathy. Results - Laboratory Findings CBC and BMP: 07/14/19 06:39 07/12/19 20:25 PT/INR, D-dimer PT 10.5 sec (9.0-12.0) 07/12/19 20:25 INR 1.0 (<1.2) 07/12/19 20:25 D-Dimer 1.77 mg/L FEU (<0.60) H 07/13/19 00:10 Abnormal lab findings: Abnormal Labs 07/12/19 07/12/19 07/12/19 20:10 20:25 20:25 RBC 3.80 L Hgb 12.5 L Hct 36.5 L Neutrophils # 9.8 H Lymphocytes # 0.2 L D-Dimer Sodium 136 L BUN 22 H Creatinine 1.37 H Glucose 135 H POC Glucose (mg/dL) Procalcitonin Urine Blood Trace H Urine Mucus Rare H 07/13/19 07/13/19 07/13/19 00:10 09:05 11:51 RBC Hgb Hct Neutrophils # Lymphocytes # D-Dimer 1.77 H Sodium BUN Creatinine Glucose POC Glucose (mg/dL) 111 H 74 L Procalcitonin Urine Blood Urine Mucus 07/13/19 07/13/19 07/13/19 16:35 17:50 20:10 RBC Hgb Hct Neutrophils # Lymphocytes # D-Dimer Sodium BUN Creatinine Glucose POC Glucose (mg/dL) 109 H 116 H Procalcitonin 2.21 H Urine Blood Urine Mucus 07/14/19 07/14/19 06:39 06:47 RBC 3.72 L Hgb 12.2 L Hct 35.7 L Neutrophils # Lymphocytes # D-Dimer Sodium BUN Creatinine Glucose POC Glucose (mg/dL) 111 H Procalcitonin Urine Blood Urine Mucus - Diagnostic Findings Chest x-ray: image reviewed (as noted in HPI, no active disease noted on chest x-ray) Additional studies: VQ scan showed low probability for pulmonary embolism Assessment and Plan Assessment: impression: 1 weakness, near syncope, exact etiology is not clear, workup is in progress. 2 acute tracheobronchitis, and underlying history of moderate severe COPD. 3 acute mild exacerbation of COPD and tracheobronchitis. 4 acute febrile illness most likely secondary to purulent tracheobronchitis, no evidence of pneumonia clinically or radiographically. 5 GERD without esophagitis, patient is presently on Protonix twice a day. 6 type 2 diabetes presently under control. 7 atypical chest pain. Being followed by cardiology. Recommendation: Continue present course of bronchodilators. Added doxycycline 100 mg by mouth twice a day. benign essential hypertension, patient is on lisinopril and Lopressor. Continue GI and DVT prophylaxis. Consider discharge planning in the next 24 hours, and follow-up on outpatient basis. Time with Patient: Greater than 30
--- NOTE | 2019-07-14 14:54 | P.DS ---
Providers Date of admission: 07/12/19 22:43 Attending physician: Jenise Quiñonez Consults: 07/12/19 22:45 Consult Physician Routine Consulting Provider: Thony Ding Consult Reason/Comments: chest pain Do you want consulting provider notified?: Yes 07/13/19 16:22 Consult Physician Routine Consulting Provider: Elizabeth Coats Reason/Comments: copd dyspnea Do you want consulting provider notified?: Yes Primary care physician: Pavan Fiore [facility] Course: Chief Complaint: shortness of breath chest pain falls this is a pleasant 84-year-old gentleman patient of Dr. Fiore, underlying history of COPD diabetes mellitus type 2 hypertension admitted to the hospital secondary to shortness of breath, and near-syncopal episode. Patient has chest pain, with shortness of breath, no significant change in the cough with white sputum, has a temperature of 101 at home, and has had melena for the past 3-4 weeks. Patient was taking iron medications at the time, however she discontinued this 2 weeks ago, and still has melanocytic stools. Patient denies any abdominal pain prior to admission, however does have periumbilical pain on my examination today. Patient does not have any dysphagia, no pleurisy, has lightheadedness, without any focal upper extremity neurologic weakness, no diplopia, patient denies any alcohol intake or NSAID intake, Emergency room, urinalysis was negative, lipasenot done, troponins are0.012 and 0.018, creatinine is 1.37, d-dimer slightly elevated at 1.77,WBC count of 10.5 hemoglobin of 12.5chest x-ray shows no acute pulmonary disease, atheromatous aortaCT of brain shows cerebral atrophy and no acute intracranial abnormality mild mucosal thickening in ethmoid air cellsEKGshowed sinus tachycardia heart rate of [address]-T wave changesVQ scan shows low probability for acute pulmonary emboli, some patchy distribution which could be related to mild COPD. Consult was made with cardiology, and pulmonary medicinefor COPD exa cerbation and atypical chest pain. Patient has had O2 on the at at bedtime, nebulized treatment times a day treatments,Hemoccult stools to be done, pro- calcitonin levels to be obtained, T-max noted at 101 denies any aspirativevent, patient denies any EGD in the past, orthostatics to be done, patient might need GI consultation if Hemoccult stools are positivemonitor hemoglobin while in hospital, patient does not have any significant melanocytic stools no diarrhea. 07/14:, Patient's doing better, no lightheadedness no falls, Hemoccult stools are negative brown stools, pro-calcitonin levels elevated at 2.2, doxycycline started, patient does not have any fever no chills, patient has expiratory wheezes on today's examination, has been seen by pulmonary and cardiology, and was cleared for discharge, patient feels well enough to go home today, orthostatics are negative. Patient has nebulizer treatments at home which he would continue, oral prednisone and doxycycline post discharge follow up with Dr. Coats pulmonary and Dr. Rodriguez cardiology FINAL DIAGNOSES 1. Near-syncope, with weakness, febrile illness, primary source unknown, patient has chronic bronchitis without purulence, pro-calcitonin noted to be elevated, doxycycline on discharge, urinalysis negative, orthostatics negative, symptoms improved on discharge 2. Atypical chest pain, troponins are negative 2, cardiology is consulted, echocardiogram requested,patientis on Lopressor, Lipitor, lisinopril no changes made, check lipase negative 3. COPD, with mild exacerbation, no hypoxemic events noted, nebulized albuterol Atrovent, Solu-Medrol 40 mg every 6 hours, short taper, Dr. Coats was consulted continue on Symbicort, nebulized albuterol or not when necessary schedulecontinue Spiriva short course oral taper prednisone 4. febrile illness, see above #1 5. Melena, for the past 3 weeks, hemoglobin remained stable at 12.5, Hemoccult stools, patient might need GI consultation should Hemoccult Be +, Protonix 40 mg twice a day, test was Hemoccult negative 6. GERD, on maintenance Prilosec at home 7. Diabetes mellitus type 2, Glucotrol 2.5 mg daily, NovoLog scale A1c to be done, monitor for hypoglycemic events, dietary intake has been at baseline is 100% 8. elevated d-dimer, VQ scan showed low probability 9. 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,Baseline creatinine March 2015 was 1.43no symptoms of urinary retention at this time, GI prophylaxis maintenanceProtonix 40 mg twice a day for melena DVT prophylaxis heparin subcu Discharge Medication List Albuterol Sulfate [Proventil Hfa] 2 puff INHALATION RT-QID PRN 03/21/15 [History] Budesonide/Formoterol Fumarate [Symbicort 160-4.5 Mcg Inhaler] 2 puff INHALATION RT-BID 03/21/15 [History] Cetirizine HCl [Zyrtec] 10 mg PO DAILY 03/21/15 [History] Furosemide [Lasix] 40 mg PO DAILY 03/21/15 [History] Metoprolol Tartrate 25 mg PO BID 03/21/15 [History] Omeprazole [PriLOSEC] 20 mg PO AC-BRKFST 03/21/15 [History] Potassium Chloride [Klor-Con 10] 10 meq PO DAILY 03/21/15 [History] Tiotropium [place] [Spiriva] 1 cap INHALATION RT-DAILY 03/21/15 [History] guaiFENesin [Mucinex] 1,200 mg PO BID PRN 03/21/15 [History] Albuterol Nebulized [Ventolin Nebulized] 2.5 mg INHALATION RT-TID PRN 07/12/19 [History] Aspirin EC [Ecotrin Low Dose] 81 mg PO DAILY 07/12/19 [History] Atorvastatin [Lipitor] 10 mg PO HS 07/12/19 [History] Lisinopril [Zestril] 2.5 mg PO DAILY 07/12/19 [History] glipiZIDE XL [Glucotrol Xl] 2.5 mg PO DAILY 07/12/19 [History] Doxycycline 100 mg twice a day 10 days. Prednisone 20 mg twice a day 5 days Patient Condition at Discharge: Fair Plan - Discharge Summary Discharge Rx Participant: No New Discharge Prescriptions: No Action Cetirizine HCl [Zyrtec] 10 mg PO DAILY Budesonide/Formoterol Fumarate [Symbicort 160-4.5 Mcg Inhaler] 2 puff INHALATION RT-BID Metoprolol Tartrate 25 mg PO BID Furosemide [Lasix] 40 mg PO DAILY Albuterol Sulfate [Proventil Hfa] 2 puff INHALATION RT-QID PRN PRN Reason: Shortness Of Breath Tiotropium [place] [Spiriva] 1 cap INHALATION RT-DAILY Potassium Chloride [Klor-Con 10] 10 meq PO DAILY Omeprazole [PriLOSEC] 20 mg PO AC-BRKFST guaiFENesin [Mucinex] 1,200 mg PO BID PRN PRN Reason: Congestion Albuterol Nebulized [Ventolin Nebulized] 2.5 mg INHALATION RT-TID PRN PRN Reason: Shortness Of Breath Aspirin EC [Ecotrin Low Dose] 81 mg PO DAILY Atorvastatin [Lipitor] 10 mg PO HS glipiZIDE XL [Glucotrol Xl] 2.5 mg PO DAILY Lisinopril [Zestril] 2.5 mg PO DAILY Discharge Medication List Albuterol Sulfate [Proventil Hfa] 2 puff INHALATION RT-QID PRN 03/21/15 [Hi story] Budesonide/Formoterol Fumarate [Symbicort 160-4.5 Mcg Inhaler] 2 puff INHALATION RT-BID 03/21/15 [History] Cetirizine HCl [Zyrtec] 10 mg PO DAILY 03/21/15 [History] Furosemide [Lasix] 40 mg PO DAILY 03/21/15 [History] Metoprolol Tartrate 25 mg PO BID 03/21/15 [History] Omeprazole [PriLOSEC] 20 mg PO AC-BRKFST 03/21/15 [History] Potassium Chloride [Klor-Con 10] 10 meq PO DAILY 03/21/15 [History] Tiotropium [place] [Spiriva] 1 cap INHALATION RT-DAILY 03/21/15 [History] guaiFENesin [Mucinex] 1,200 mg PO BID PRN 03/21/15 [History] Albuterol Nebulized [Ventolin Nebulized] 2.5 mg INHALATION RT-TID PRN 07/12/19 [History] Aspirin EC [Ecotrin Low Dose] 81 mg PO DAILY 07/12/19 [History] Atorvastatin [Lipitor] 10 mg PO HS 07/12/19 [History] Lisinopril [Zestril] 2.5 mg PO DAILY 07/12/19 [History] glipiZIDE XL [Glucotrol Xl] 2.5 mg PO DAILY 07/12/19 [History] Follow up Appointment(s)/Referral(s): Toyin Samayoa MD [STAFF PHYSICIAN] - 2 Weeks Pavan Fiore MD [Primary Care Provider] - 1-2 days
[2019-07-15] MEDS ORDERED: FUROSEMIDE 40 MG TAB PO SCH (09:00)
== END 2019-07-14 15:55 | disposition home or self-care (01) | DRG 192 ==
LOC: EC 19:52 → 1SOBS 22:43 → OBSVTOIN 07-14 13:43 → UNDODISOB 07-14 15:55
PROVIDERS: ADMIT Family Medicine; ATTEND Family Medicine
DX: J44.1 Chronic obstructive pulmonary disease with (acute) exacerbation (principal); J44.0 Chronic obstructive pulmonary disease with (acute) lower respiratory infection; J20.9 Acute bronchitis, unspecified; I12.9 Hypertensive chronic kidney disease with stage 1 through stage 4 chronic kidney disease, or unspecified chronic kidney disease; E11.22 Type 2 diabetes mellitus with diabetic chronic kidney disease; E78.00 Pure hypercholesterolemia, unspecified; K21.9 Gastro-esophageal reflux disease without esophagitis; N18.9 Chronic kidney disease, unspecified; R29.6 Repeated falls; Z68.33 Body mass index [BMI] 33.0-33.9, adult; Z79.51 Long term (current) use of inhaled steroids; Z79.82 Long term (current) use of aspirin; Z79.84 Long term (current) use of oral hypoglycemic drugs; Z79.899 Other long term (current) drug therapy; Z80.0 Family history of malignant neoplasm of digestive organs; Z87.891 Personal history of nicotine dependence; E66.9 Obesity, unspecified; R79.1 Abnormal coagulation profile; R07.89 Other chest pain; R26.81 Unsteadiness on feet; R55 Syncope and collapse; E78.5 Hyperlipidemia, unspecified
CPT/HCPCS: 36415; 70450; 71046; 78582; 80053; 81001; 82272; 83690; 83735; 84145; 84484; 85025; 85027; 85379; 85610; 85730; 93005; 93306; 94640; 94760; 96360; 99285